=== PATIENT | female | born 1950 | race Caucasian/White ===

== ENCOUNTER → 2016-12-04 13:07 | Outpatient (CLI) | payer MEDICARE, BC ==
[2015-10-16 09:39] VITALS: BMI 25.6
[~2016-12-04 13:07] MED LIST: BUPROBAN150 MG PO; CELEXA10 MG PO; COZAAR25 MG PO; COZAAR50 MG PO; CYCLOBENZAPRINE10 MG PO; ESTRACE1 MG PO; FARXIGA10 MG PO; HUMALOG 30100 UNITS/ SQ; IBUPROFEN600 MG PO; K-DUR20 MEQ PO; KLOR-CON 1010 MEQ OR; LIPITOR40 MG PO; PERCOCET 10/3251 TA1 PO; SYNTHROID25 MCG PO; TOPROL XL25 MG PO; ULTRAM50 MG PO; ZOFRAN4 MG PO
== END | disposition home or self-care (01) ==
LOC: D.MRI 13:07
DX: R41.3 Other amnesia (principal)

== ENCOUNTER → 2016-12-10 09:35 | Outpatient (CLI) | payer MEDICARE, BC ==
[2015-10-16 09:39] VITALS: BMI 25.6
[2016-12-10 11:16] LABS: BASOPHILS 0.3 % (0.0-2.0); EOSINOPHILS 2.8 % (0-7); HEMATOCRIT 36.5 % (36.0-48.0); IMMATURE GRANULOCYTES 0.2 % (0-5); LYMPHOCYTES 36.4 % (15-50); MCHC 32.9 g/dL (31.0-37.0); MCV 94.3 fL (80.0-100.0); MEAN PLATELET VOLUME 9.5 fL (7.4-10.4); MONOCYTES 9.2 % (2-11); NEUTROPHILS 51.1 % (40-80); PLATELET COUNT 220 10x3/uL (130-400); RBC 3.87 10x6/uL (4.00-5.40); RDW 12.7 % (11.5-14.5); WBC 5.8 10x3/uL (4.8-10.8)
[2016-12-10 11:40] LABS: ALBUMIN 3.1 g/dL (3.4-5.0); ALKALINE PHOSPHATASE 55 U/L (46-116); ALT (SGPT) 40 U/L (10-68); BILIRUBIN - TOTAL 0.28 mg/dL (0.2-1.3); CALC OSMOLALITY 278 mosm/kg (275-300); CALCIUM 8.8 mg/dL (8.5-10.1); CHLORIDE - SERUM 107 mmol/L (98-107); CREATININE - SERUM 0.7 mg/dL (0.6-1.3); POTASSIUM - SERUM 3.9 mmol/L (3.5-5.1); PROTEIN - SERUM 7.2 g/dL (6.4-8.2); SODIUM 142 mmol/L (136-145); UREA NITROGEN 10 mg/dL (7-18); eGFR NON AFRICAN AMERICAN 89 mL/min (90-120)
[2016-12-10 11:56] LABS: GLUCOSE 40 mg/dL (74-106)
[2016-12-11 06:14] LABS: RAPID PLASMA REAGIN Non Reactive (Non Reactive)
[2016-12-11 09:19] LABS: FOLATE (FOLIC ACID) - SERUM 15.5 ng/mL (>3.0)
--- NOTE | 2016-12-23 08:45 | EEG ---
PATIENT:OBINNA RANDOLPH DATE OF SERVICE: 12/10/16 MEDICAL RECORD: [id number] DATE OF : 50 LOCATION: [facility] ADMISSION DATE: 12/10/16 REFERRING PHYSICIAN: INTERPRETING PHYSICIAN: OSMAN MARTINEZ MD DATE OF SERVICE: 12/10/2016 Referred as an outpatient by myself. ELECTROENCEPHALOGRAM NUMBER: #[id number] DATE OF EXAMINATION: 12/10/2016 at 10:30 a.m. TECHNICAL DATA: This electroencephalographic recording consists of approximately 20 minutes of data collection utilizing the international 10/20 system of electrode placement and both referential and non-referential montages. Sixteen channels of electrocerebral recording are accompanied by a 17th channel dedicated to the electrocardiographic rhythm and 2 channels of electromyographic recording. The recording is performed in the awake and drowsy states utilizing activation by hyperventilation and photic stimulation. ELECTROENCEPHALOGRAPHIC DATA: The awake state comprises approximately 50% of the recorded electrocerebral activity. Electromyographic artifact is prominent and rapid eye movements are seen. The posterior dominant background consists of a well-developed, symmetric, rhythmic, waxing and waning alpha activity of 8-9 Hz which is suppressed by eye opening. The drowsy state comprises the remaining portion of the recorded electrocerebral activity. Electromyographic artifact is diminished and rapid eye movements are not seen. The posterior dominant background is relatively suppressed. Also seen is an intermittent irregular, generalized and symmetric 3-4 Hz delta slowing which occurs for periods of 1 to 2 seconds approximately once every 2 to 3 pages. No abnormal or focal slowing is identified. No epileptiform discharges are seen. Hyperventilation and photic stimulation induced no abnormal change in the recorded electrocerebral activity. INTERPRETATION: Normal (awake and drowsy). This is a normal electroencephalographic recording. TRANSINT:[id number] Voice Confirmation ID: [id number] DOCUMENT ID: [id number] ELECTROENCEPHALOGRAM REPORT [id number] OBINNA RANDOLPH OSMAN MARTINEZ MD at 0845 CC: [id number] DICTATION DATE: 12/12/16 0757 IMPLEMENT MECHANIC: 12/13/16 0033 DEP CLI 12/10/16 [place] [address]
== END | disposition home or self-care (01) ==
LOC: D.CN 09:35
PROVIDERS: Psychiatry & Neurology Neurology
DX: R41.3 Other amnesia (principal)

== ENCOUNTER → 2017-06-18 16:58 | Outpatient (CLI) | payer MEDICARE, BC ==
[2015-10-16 09:39] VITALS: BMI 25.6
== END | disposition home or self-care (01) ==
LOC: D.MAMMO 15:30
DX: Z12.31 Encounter for screening mammogram for malignant neoplasm of breast (principal)

== ENCOUNTER 2018-06-29 11:00 | Outpatient (CLI) | payer MEDICARE, BC ==
[~2018-06-29] VITALS: Ht 157.5 cm; Wt 68.2 kg
--- NOTE | ~2018-06-29 | HEMODYNAMI ---
PATIENT:OBINNA RANDOLPH MEDICAL RECORD: [id number] : 50 LOCATION:[facility] ADMISSION DATE: 06/29/18 Generatedon:06/29/201813:37 Patient name: OBINNA RANDOLPH Patient #: [id number] SSN: : 1950 Date of study: 06/29/2018 Page: Of Hemodynamic Procedure Report Patient Data Patient Demographics Procedure consent was obtained First Name: BOINNA Gender: Female Last Name: TOMASA : 1950 Middle Initial: J Age: 68 year(s) Patient #: [id number] Race: Unknown Additional ID: [id number] Contact details [address]: [address] [place] [address] State: [place] City: [place] Zip code: [address] Past Medical History Allergies: No known allergies Admission Admission Data Admission Date: 06/29/2018 Admission Time: 11:00 Procedure Procedure Types Cath Procedure Diagnostic Procedure LHC LHC w/Coronaries w/Grafts Sedation Charges Moderate Sedation up to 15 minutes PCI Procedure Coronary Stent Coronary Stent Initial Procedure Description Procedure Date Procedure Date: 06/29/2018 Procedure Start Time: 13:04 Procedure End Time: 13:31 Procedure Staff Name Function Vilma Jensen RT Monitor Gwendolyn Lujan RN Nurse Yoel Apple MD Performing Physician Hunter Wang RT Scrub Procedure Data Cath Procedure Fluoroscopy Diagnostic fluoroscopy Total fluoroscopy Time: 6.1 time: 6.1 min min Diagnostic fluoroscopy Total fluoroscopy dose: 684 dose: 684 mGy mGy Contrast Material Contrast Material Type Amount (ml) Isovue 300 127 Entry Location Entry Primary Successful Side Size Upsize Upsize Entry Closure Succes sful Closure Location (Fr) 1 (Fr) 2 (Fr) Remarks Device Remarks Femoral Right 5 Fr 6 Fr Exoseal artery Short Estimated blood loss: 5 ml Diagnostic catheters Device Type Used For End Catheter Placement MULTIPACK JL 4.0 5Fr Left Coronary catheter Angiography DIAGNOSTIC AR MOD 5Fr Multi-vessel Catheter ([id number]) Angiography DIAGNOSTIC IM 5Fr Multi-vessel catheter ([id number]) Angiography MULTIPACK Pigtail 5 Fr LV Angiography catheter Procedure Complications No complications Procedure Medications Medication Administration Route Dosage Oxygen etCO2 Nasal cannula 2 l/min Lidocaine 2% added to field 20 Heparin Flush Bag added to field 2 bags (1000units/500ml NS) 0.9% NaCl I.V. 100 ml/hr Versed I.V. 1 mg Fentanyl I.V. 50 mcg Versed I.V. 1 mg Fentanyl I.V. 50 mcg Heparin Bolus I.V. 7000 units Brilinta P.O. 180 mg Hemodynamics Rest Heart Rate: 52 (bpm) Pressure Samples Time Site Value (mmHg) Purpose Heart Use Rate(bpm) 13:16 LV 133/3,12 Snapshot 63 13:17 LV 126/4,15 Pullback 62 13:17 AO 114/53(76) Pullback 62 Gradients Valve Time Site 1 Site 2 Mean SEP/DFP Peak To Heart Use (mmHg) (sec/min) Peak Rate (mmHg) (bpm) Aortic 13:17 LV AO 14 21 12 62 126/4,15 114/53(76) Calculations Valve P-P Mean Valve Index Valve Source Name Gradient Area Flow (cm2) Aortic 12 14 12 14 Snapshots Pre Cath Intra NCS Post Cath Vital Signs Time Heart Resp SPO2 etCO2 NIBP (mmHg) Rhythm Pain Sedation Rate (ipm) (%) (mmHg) Status Level (bpm) 12:45:51 56 23 98 0 127/69(107) NSR 0 (11) 10(A) , No pain 12:51:09 53 11 98 0 159/73(131) NSR 0 (11) 10(A) , No pain 12:55:33 54 23 99 36.7 122/61(96) NSR 0 (11) 10(A) , No pain 12:59:41 60 14 93 15 112/79(99) NSR 0 (11) 10(A) , No pain 13:04:48 60 15 97 35.2 136/72(109) NSR 0 (11) 9(A) , No pain 13:09:02 61 12 98 37.5 131/75(96) NSR 0 (11) 9(A) , No pain 13:13:14 61 12 98 33.7 134/73(103) NSR 0 (11) 9(A) , No pain 13:17:30 62 16 99 33 121/67(88) NSR 0 (11) 9(A) , No pain 13:21:40 62 14 99 33.7 119/72(94) NSR 0 (11) 9(A) , No pain 13:26:47 63 12 99 33.7 115/65(90) NSR 0 (11) 9(A) , No pain 13:30:55 63 14 99 33 130/72(115) NSR 0 (11) 10(A) , No pain Medications Time Medication Route Dose Verified Delivered Reason Notes Effectiveness by by 12:47:44 Oxygen etCO2 2 Yoel Buffie used for Nasal l/min Ashkan Lujan RN procedure cannula 12:47:51 Lidocaine 2% added 20ml Yoel Yoel for local to vial Ashkan Apple MD anesthetic field 12:48:04 Heparin Flush added 2 Yoel Yoel used for Bag to bags Ashkan Apple MD procedure (1000units/500ml field NS) 12:48:14 0.9% NaCl I.V. 100 Yoel Buffie Per physician ml/hr Ashkan Lujan RN 12:58:44 Versed I.V. 1 mg Yoel Buffie for sedation Ashkan Lujan RN 12:58:50 Fentanyl I.V. 50 Yoel Buffie for sedation mcg Ashkan Lujan RN 13:12:00 Versed I.V. 1 mg Yoel Buffie for sedation Ashkan Lujan RN 13:12:05 Fentanyl I.V. 50 Yoel Buffie for sedation mcg Ashkan Lujan RN 13:22:22 Heparin Bolus I.V. 7000 Yoel Buffie for vreif ied units Ashkan Lujan RN anticoagulation with dr apple 13:32:06 Brilinta P.O. 180 Yoel Buffie for mg Ashkan Lujan RN antiplatelet therapy Procedure Log Time Note 12:34:37 Diagnostic Cath Status : Elective 12:35:50 Hunter Wang RT(R) sent for patient. Start room use. 12:35:51 Time tracking: Regular hours (M-F 7:00 - 5:00) 12:35:56 Plan of Care:Hemodynamics will remain stable., Cardiac rhythm will remain stable., Comfort level will be maintained., Respiratory function will remain adequate., Patient/ family verbilizes understanding of procedure., Procedure tolerated without complication., Recovers from procedure without complications.. 12:36:49 Patient received from Pre/Post Procedure Room to CCL 2 Alert and oriented. Tansferred to table in Supine position. 12:36:50 Warm blankets applied, and ryley hugger turned on for patient comfort. 12:36:51 Correct patient and procedure confirmed by team. 12:36:52 Signed procedure consent form obtained from patient. 12:36:53 ECG and BP/O2 sat monitors applied to patient. 12:44:49 Vital chart was started 12:44:53 Baseline sample Acquired. 12:45:00 Full Disclosure recording started 12:45:18 H&P Date Dictated: 06/21/2018 Within 30 days and on chart., H&P Addendum completed by physician on day of procedure. (MUST COMPLETE FOR ALL OUTPATIENTS). 12:45:20 Pre-procedure instructions explained to patient. 12:45:22 Family in waiting room. 12:45:24 Patient NPO since Midnight. 12:45:33 Patient allergic to No known allergies 12:45:37 Is the patient allergic to Iodine/contrast media? No. 12:45:38 Was the patient premedicated? Yes 12:45:40 Is patient on blood thinner?No 12:45:43 Patient diabetic? Yes. 12:45:45 If diabetic: On Metformin? No 12:45:50 Snore? Yes 12:45:51 Sleep apnea? No 12:45:56 Dentures? No ? 12:46:03 Patient pain scale 0/10 ?. 12:46:10 IV patent on arrival in left forearm with 0.9% NaCl at KVO. 12:46:15 Lab results completed and on chart. 12:46:21 Right groin area was prepped with chlora-prep and draped in sterile fashion 12:46:22 Alarms reviewed by R. N. 12:46:23 Sharps counted by scrub and verified by R.N. 12:46:24 Physician paged 12:47:44 Oxygen 2 l/min etCO2 Nasal cannula was administered by Gwendolyn Lujan RN; used for procedure; 12:47:51 Lidocaine 2% 20ml vial added to field was administered by Yoel Apple MD; for local anesthetic; 12:48:04 Heparin Flush Bag (1000units/500ml NS) 2 bags added to field was administered by Yoel Apple MD; used for procedure; 12:48:14 0.9% NaCl 100 ml/hr I.V. was administered by Gwendolyn Lujan RN; Per physician; 12:52:15 Physician arrived 12:52:16 Final Timeout: patient, procedure, and site verified with staff and physician. All members of the team are in agreement. 12:52:16 --------ALL STOP TIME OUT------ 12:52:18 Right groin site verified by team. 12:52:21 Physical assessment completed. ASA score P 2 - A patient with mild systemic disease as per Yoel Apple MD. 12:52:25 Sedation plan: IV Moderate Sedation Medication:Versed, Fentanyl 12:52:47 Use device set Femoral Dx 12:52:48 Bag Decanter (2002) opened to sterile field. 12:52:48 ACIST Syringe (89897) opened to sterile field. 12:52:49 Medline Cath Pack ([id number]) opened to sterile field. 12:52:53 DIAGNOSTIC WIRE .035 260cm J wire (994136) opened to sterile field. 12:52:55 ACIST Manifold (42913) opened to sterile field. 12:52:55 ACIST Hand Control (81018) opened to sterile field. 12:52:56 Tegaderm 4 x 4 (1626W) opened to sterile field. 12:52:56 DIAGNOSTIC Multipack 5Fr catheter set (VZ7057) opened to sterile field. 12:52:58 SHEATH Prelude 5Fr 0.035 (RAM-0M-78-035) opened to sterile field. 12:53:54 Baseline sample Acquired. 12:57:50 Zero performed for pressure channel P1 12:58:44 Versed 1 mg I.V. was administered by Gwendolyn Lujan RN; for sedation; 12:58:50 Fentanyl 50 mcg I.V. was administered by Gwendolyn Lujan RN; for sedation; 13:04:18 Procedure started. 13:04:21 Local anesthetic to right femoral artery with Lidocaine 2% by Yoel Apple MD.INITIAL ACCESS ONLY 13:06:36 A 5 Fr sheath was inserted into the Right Femoral artery 13:06:43 A MULTIPACK JL 4.0 5Fr catheter was advanced over the wire and used for Left Coronary Angiography. 13:08:25 LCA angiography performed. 13:08:28 Injector settings: Ml/sec: 3, Volume: 6, 13:09:18 Catheter removed. 13:09:41 A DIAGNOSTIC AR MOD 5Fr Catheter (561947G) was advanced over the wire and used for Multi-vessel Angiography. 13:10:35 RCA angiography performed. 13:11:30 Catheter removed. 13:11:37 A DIAGNOSTIC IM 5Fr catheter (048383C) was advanced over the wire and used for Multi-vessel Angiography. 13:12:00 Versed 1 mg I.V. was administered by Gwendolyn Lujan RN; for sedation; 13:12:05 Fentanyl 50 mcg I.V. was administered by Gwendolyn Lujan RN; for sedation; 13:14:14 RAMSAY angiography performed. 13:14:51 Catheter removed. 13:15:23 A MULTIPACK Pigtail 5 Fr catheter was advanced over the wire and used for LV Angiography. 13:16:46 LV hemodynamics recorded. 13:16:47 LV gram done using KNOX 13:16:50 Injector settings: Ml/sec: 5, Volume: 15, 13:16:55 EF : 55 % 13:18:53 Catheter removed. 13:18:54 Proceeding to intervention. 13:20:16 GUIDE 6FR XBLAD 3.5 catheter ([id number]) opened to sterile field. 13:20:17 TUBING High Pressure Extension Tubing (Ashkan) ([id number]) opened to sterile field. 13:20:18 INFLATOR Merit BasixCompak (QM0990) opened to sterile field. 13:20:20 BMW 300cm [place] 2 J wire (4494556C) opened to sterile field. 13:21:41 Sheath upsized to a 6 Fr Short. 13:21:54 6 Fr xblad 3.5 guide catheter was inserted over the wire 13:21:59 bmw wire advanced. 13:22:22 Heparin Bolus 7000 units I.V. was administered by Gwendolyn Lujan RN; for anticoagulation; vreified with dr apple 13:23:40 Wire advanced across lesion. 13:26:42 Place stent Inflation Number: 1 A MICHAEL OTW 3.5 x 22 stent ([id number]) was prepped and advanced across the Prox CX. The stent was deployed at 14 ARELI for 0:10 (min:sec). 13::59 Stent catheter was removed intact over wire. 13:28: Guide catheter removed. 13:28: Wire removed. 13:28:21 EXOSEAL 6Fr (EX600) opened to sterile field. 13::34 Sheath removed intact; hemostasis achieved with Exoseal to the Right Femoral artery. 13:28:37 Procedure ended.(Physican Out) 13:29:17 Fluoroscopy time 06.10 minutes. 13:: Fluoroscopy dose: 684 mGy 13:: Flurop Dose total: 684 13:29:26 Contrast amount:Isovue 300 127ml. 13:29:28 Sharps counted by scrub and verified by R.N. 13:29:30 Insertion/operative site no bleeding no hematoma. 13:29:34 Post-op/insertion site Right Femoral artery dressed using a 4 x 4 and Tegaderm. 13:30:08 Post right femoral artery:stable 13:30:09 Post Procedure Pulses reassessed and unchanged 13:30:12 Post procedure rhythm: unchanged. 13:30:15 Estimated blood loss: 5 ml 13:30:18 Patient needs reinforcement of post procedure teaching. 13:30:18 Post procedure instruction explained to patient.Patient verbalizes understanding. 13:30:38 Procedure and supply charges have been captured, reviewed, submitted and are correct. 13:30:38 Procedure type changed to Cath procedure, Diagnostic procedure, LHC, LHC w/Coronaries w/Grafts, Sedation Charges, Moderate Sedation up to 15 minutes, PCI procedure, Coronary Stent, Coronary Stent Initial 13:30:52 Procedure Complication : No complications 13:30:56 Vital chart was stopped 13::59 See physician's report for complete and final results. 13:31:06 Report given to Pre/Post Procedure Room. 13:31:31 Patient transfered to Pre/Post Procedure Room with Stretcher. 13:31:33 Full Disclosure recording stopped 13::33 Procedure ended. 13:32:06 Brilinta 180 mg P.O. was administered by Gwendolyn Lujan RN; for antiplatelet therapy; 13:32:39 ACC-PCI Only Patient was given prescriptions, or instructed by Yoel Apple MD to start/continue the following medications upon discharge: Brilinta 13:32:41 End room use (Document Last) Intervention Summary Intervention Notes Time ActionType Lesion and Equipment Action# Pressure Duration Attributes Used 13:26:42 Place stent Prox CX MICHAEL OTW 3.5 1 14 00:10 x 22 stent ([id number]) Device Usage Item Name Manufacture Quantity Catalog Number Hospital Part Current Minimal Lot# / Charge Number Stock Stock Serial# Code ACIST Syringe Acist 1 27450 494492 300711 [id number] 20 (37754) Medical Systems Squirrly Bag Decanter Microtek 1 2001S 725686 11164 198906 5 () Medical Inc. Medline Cath Cardinal 1 [id number] 037316 55164 343038 5 Pack Health ([id number]) DIAGNOSTIC WIRE St Quinn 1 339480 288110 380322 040888 30 .035 260cm J wire (959026) ACIST Hand Acist 1 67748 290444 768727 572947 5 Control (11097) Medical Systems Squirrly ACIST Manifold Acist 1 26231 548223 201064 760694 5 (17322) Medical Systems Inc DIAGNOSTIC Cardinal 1 KV1127 032721 87144 478478 30 Multipack 5Fr Health catheter set (RB1605) Tegaderm 4 x 4 3M 1 1626W 895124 045001 451459 5 (1626W) SHEATH Prelude Merit 1 EID-3D-49-035 093158 638294 136563 5 5Fr 0.035 Medical (JJA-7H-69-035) MULTIPACK JL Cardinal 1 765450 5 4.0 5Fr Health catheter DIAGNOSTIC AR Cardinal 1 [id number] 877596 986452 341721 15 MOD 5Fr Health Catheter (835507I) DIAGNOSTIC IM Cardinal 1 [id number] 415798 525360 263729 5 5Fr catheter Health (886737I) MULTIPACK Cardinal 1 821724 5 Pigtail 5 Fr Health catheter GUIDE 6FR XBLAD Cardinal 1 [id number] 587684 282792 337629 10 3.5 catheter Health ([id number]) TUBING High Merit 1 [id number] 602445 39560 383018 10 Pressure Medical Extension Tubing (Apple) (NO5225X) INFLATOR Merit Merit 1 ME0283 914619 546278 836961 15 BasixComnhDatacastle Medical (MO6563) BMW 300cm Perez 1 [id number] 726765 096739 124696 5 [place] 2 J Vascular wire (3390319U) MICHAEL OTW 3.5 x Medtronic 1 [id number] 059488 6831369 786301 5 [id number] 22 stent ([id number]) EXOSEAL 6Fr Cardinal 1 EX600 261470 932225 995037 10 (EX600) Health Signature Audit [place] Stage Time Signature Unsigned Intra-Procedure 06/29/2018 Vilma Jensen 1:37:26 PM RT(R) Signatures Monitor : Vilma Jensen RT Signature : Date : Time : [address] [place] [address]
[2018-06-29] MEDS ORDERED: HUMALOG 30100 UNITS/ (11:24)
[2018-06-29 11:33] VITALS: BP 122/60; Ht 157.5 cm; Wt 68.2 kg
[2018-06-29 12:00] LABS: CALC OSMOLALITY 280 mosm/kg (275-300); CALCIUM 8.7 mg/dL (8.5-10.1); CARBON DIOXIDE 29.6 mmol/L (21.0-32.0); CHLORIDE - SERUM 104 mmol/L (98-107); CREATININE - SERUM 0.8 mg/dL (0.6-1.3); GLUCOSE 192 mg/dL (74-106); POTASSIUM - SERUM 4.4 mmol/L (3.5-5.1); SODIUM 138 mmol/L (136-145); UREA NITROGEN 12 mg/dL (7-18); eGFR NON AFRICAN AMERICAN 75 mL/min (90-120)
[2018-06-29 12:11] LABS: BASOPHILS 0.6 % (0-2); HEMATOCRIT 37.2 % (36.0-48.0); HEMOGLOBIN 12.4 g/dL (12-16); IMMATURE GRANULOCYTES 0.6 % (0-5); LYMPHOCYTES 32.4 % (15-50); MCHC 33.3 g/dL (31.0-37.0); MCV 90.1 fL (80.0-100.0); MEAN PLATELET VOLUME 10.9 fL (7.4-10.4); NEUTROPHILS 51.4 % (40-80); PLATELET COUNT 242 10x3/uL (130-400); RBC 4.13 10x6/uL (4.00-5.40); RDW 13.5 % (11.5-14.5); WBC 5.4 10x3/uL (4.8-10.8)
[2018-06-29] MEDS ORDERED: BRILINTA90 MG PO (14:15)
== END 2018-06-29 18:31 ==
LOC: D.CATH 11:00
PROVIDERS: Internal Medicine Cardiovascular Disease
DX: I25.110 Atherosclerotic heart disease of native coronary artery with unstable angina pectoris (principal); I25.710 Atherosclerosis of autologous vein coronary artery bypass graft(s) with unstable angina pectoris; Z01.812 Encounter for preprocedural laboratory examination
CPT/HCPCS: 93459; C9600

== ENCOUNTER → 2018-08-03 17:56 | Outpatient (CLI) | payer MEDICARE, BC ==
[2018-06-29 11:33] VITALS: BMI 27.5
[~2018-08-03 17:56] MED LIST changes: +BRILINTA90 MG PO; +HUMALOG 30100 UNITS/
== END | disposition home or self-care (01) ==
LOC: D.MAMMO 11:30
DX: Z12.31 Encounter for screening mammogram for malignant neoplasm of breast (principal)

== ENCOUNTER 2019-04-04 13:19 | Emergency (ER) | payer MEDICARE, BC ==
[~2019-04-04] VITALS: Ht 157.5 cm; Wt 69.1 kg
[2019-04-04 13:22] VITALS: BP 152/62; Ht 157.5 cm; Wt 69.1 kg
== END 2019-04-04 16:40 | disposition home or self-care (01) ==
LOC: D.ER 13:19
DX: S61.411A Laceration without foreign body of right hand, initial encounter (principal); W26.8XXA Contact with other sharp object(s), not elsewhere classified, initial encounter; Y93.89 Activity, other specified; Y92.019 Unspecified place in single-family (private) house as the place of occurrence of the external cause; S60.221A Contusion of right hand, initial encounter

== ENCOUNTER 2019-04-16 18:26 | Observation (INO) | payer MEDICARE, BC | END 2019-04-19 20:22 | disposition home or self-care (01) | LOC: D.ER 18:26 → D.M2 20:10 | PROVIDERS: ADMIT Family Medicine | DX: K21.0 Gastro-esophageal reflux disease with esophagitis (principal); K29.70 Gastritis, unspecified, without bleeding; R55 Syncope and collapse; I25.10 Atherosclerotic heart disease of native coronary artery without angina pectoris; I10 Essential (primary) hypertension; E78.5 Hyperlipidemia, unspecified; E11.9 Type 2 diabetes mellitus without complications; D64.9 Anemia, unspecified; E03.9 Hypothyroidism, unspecified; E87.5 Hyperkalemia; F32.9 Major depressive disorder, single episode, unspecified ==

== ENCOUNTER 2020-08-07 22:48 | Emergency (ER) | payer MEDICARE, BC ==
[~2020-08-07] VITALS: Ht 157.5 cm; Wt 61.4 kg
[~2020-08-07 22:48] MED LIST changes: +PROTONIX40 MG PO
[2020-08-07 23:09] VITALS: Ht 157.5 cm; Wt 61.4 kg
[2020-08-08 00:09] LABS: ALBUMIN 3.8 g/dL (3.4-5.0); ANION GAP 17.7 mmol/L (8-16); BILIRUBIN - TOTAL 0.37 mg/dL (0.2-1.3); CALCIUM 9.8 mg/dL (8.5-10.1); CARBON DIOXIDE 22.8 mmol/L (21.0-32.0); CREATININE - SERUM 1.7 mg/dL (0.6-1.3); MAGNESIUM - SERUM 1.7 mg/dL (1.8-2.4); POTASSIUM - SERUM 4.5 mmol/L (3.5-5.1); PROTEIN - SERUM 7.9 g/dL (6.4-8.2)
[2020-08-08 00:18] LABS: BASOPHILS 0.6 % (0-2); EOSINOPHILS 0.9 % (0-7); HEMOGLOBIN 11.4 g/dL (12-16); IMMATURE GRANULOCYTES 1.6 % (0-5); LYMPHOCYTES 33.7 % (15-50); MCH 29.8 pg (26.0-34.0); MCHC 34.5 g/dL (31.0-37.0); MCV 86.2 fL (80.0-100.0); MEAN PLATELET VOLUME 9.8 fL (7.4-10.4); NEUTROPHILS 53.2 % (40-80); RBC 3.83 10x6/uL (4.00-5.40); RDW 13.8 % (11.5-14.5); WBC 6.9 10x3/uL (4.8-10.8)
[2020-08-08 00:24] LABS: PLATELET COUNT 324 10x3/uL (130-400)
[2020-08-08 01:25] LABS: BILIRUBIN NEGATIVE (NEGATIVE); KETONE NEGATIVE (NEGATIVE); NITRITE NEGATIVE (NEGATIVE); UROBILINOGEN NORMAL mg/dL (< 2)
[2020-08-08 01:28] LABS: BACTERIA MODERATE HPF (NONE SEEN); EPITHELIAL CELLS 0-5 /hpf (0-5); WHITE CELLS - URINE 0-5 HPF (0-4)
[2020-08-08 02:55] VITALS: BP 126/58
== END 2020-08-08 02:55 | disposition home or self-care (01) ==
LOC: D.ER 22:48
PROVIDERS: Family Medicine
DX: E11.65 Type 2 diabetes mellitus with hyperglycemia (principal); N28.9 Disorder of kidney and ureter, unspecified; R11.2 Nausea with vomiting, unspecified; E03.9 Hypothyroidism, unspecified; I10 Essential (primary) hypertension; Z95.1 Presence of aortocoronary bypass graft; Z72.0 Tobacco use; Z79.4 Long term (current) use of insulin

== ENCOUNTER → 2021-05-10 13:32 | Outpatient (CLI) | payer MEDICARE, BC ==
[2020-08-07 23:09] VITALS: BMI 24.7
== END | disposition home or self-care (01) ==
LOC: D.MRI 13:00
PROVIDERS: ATTEND Nurse Practitioner Family
DX: M47.22 Other spondylosis with radiculopathy, cervical region (principal); M75.102 Unspecified rotator cuff tear or rupture of left shoulder, not specified as traumatic